=== PATIENT | male | born 1950 | race Two or more races ===

== ENCOUNTER 2020-03-09 14:36 | Outpatient (CLI) | payer MEDICARE, BC | END 2020-03-09 23:59 | disposition home or self-care (01) | LOC: RAD 14:36 | PROVIDERS: ATTEND Internal Medicine Interventional Cardiology | DX: J90 Pleural effusion, not elsewhere classified (principal); I70.0 Atherosclerosis of aorta | CPT/HCPCS: 71046 ==

== ENCOUNTER 2020-03-18 11:13 | Outpatient (CLI) | payer MEDICARE, BC | END 2020-03-18 23:59 | disposition home or self-care (01) | LOC: RAD 11:13 | PROVIDERS: ATTEND Internal Medicine Interventional Cardiology | DX: J98.11 Atelectasis (principal); I70.0 Atherosclerosis of aorta | CPT/HCPCS: 71045-TC ==